=== PATIENT | female | born 1955 | race Caucasian/White ===

== ENCOUNTER 2016-09-17 09:00 | Outpatient (CLI) | payer BC ==
--- NOTE | 2016-09-17 14:37 | DIAGNOSTIC IMAGING REPORT ---
PROCEDURE: US SOFT TISSUE ANYWHERE INDICATION: LUMP ON FACE TECHNIQUE: Ruby scale and color Doppler sonographic images of the chin were obtained COMPARISON: None available FINDINGS: Palpable pliable soft tissue felt. No distinct mass or lesion. There is normal vascularity in the area of interest. This could represent ill-defined lipomatous tissue. IMPRESSION: 1. Subcutaneous lipomatous tissue.
== END 2016-09-17 23:00 ==
LOC: US SRH 09:00
DX: D17.0 Benign lipomatous neoplasm of skin and subcutaneous tissue of head, face and neck (principal)